=== PATIENT | female | born 1980 ===

== ENCOUNTER 2016-11-29 12:48 | Emergency (ER) | payer MEDICAID ==
[2016-11-29 13:02] VITALS: TEMP 98.1
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
[2016-11-29 14:17] LABS: ARTERIAL BLOOD GAS O2 SAT 100.3 % (95-98)
[2016-11-29 15:11] VITALS: BP 108/71; PULSE 75; RESP 16
[2016-11-29 22:43] VITALS: O2SAT 99
== END 2016-11-29 15:10 | disposition home or self-care (01) ==
LOC: C.ER 12:48
DX: R51 Headache (principal); X08.8XXA Exposure to other specified smoke, fire and flames, initial encounter; Y92.003 Bedroom of unspecified non-institutional (private) residence as the place of occurrence of the external cause